=== PATIENT | male | born 1955 | race Caucasian/White ===

== ENCOUNTER 2020-02-21 08:02 | Emergency (ER) | payer OTHER ==
[2020-02-21 11:25] VITALS: BP 151/76
== END 2020-02-21 11:25 | disposition home or self-care (01) ==
LOC: ED 08:02
DX: S01.422A Laceration with foreign body of left cheek and temporomandibular area, initial encounter (principal); I10 Essential (primary) hypertension; Z88.8 Allergy status to other drugs, medicaments and biological substances; W18.09XA Striking against other object with subsequent fall, initial encounter; Y99.8 Other external cause status; Y93.89 Activity, other specified; Y92.89 Other specified places as the place of occurrence of the external cause
CPT/HCPCS: 90715

== ENCOUNTER 2020-02-25 14:14 | Emergency (ER) | payer OTHER ==
[~2020-02-25] VITALS: Ht 182.9 cm; Wt 137.0 kg
[2020-02-25 15:20] VITALS: BP 171/94
== END 2020-02-25 15:20 | disposition home or self-care (01) ==
LOC: ED 14:14
DX: S00.03XD Contusion of scalp, subsequent encounter (principal); W22.8XXD Striking against or struck by other objects, subsequent encounter